=== PATIENT | female | born 1990 | race Caucasian/White ===

== ENCOUNTER 2018-04-30 07:46 | Emergency (ER) | payer OTHER ==
[2018-04-30] MEDS ORDERED: Ketorolac INJ* 30 MG/ML 1 ML VIAL IV ONE (07:57)
[2018-04-30] MEDS ORDERED: Ondansetron INJ* 2 MG/ML VIAL IV ONE (07:57)
[2018-04-30] MEDS ORDERED: NS 0.9% 1000 ML* 1,000 ML IV ONE (07:57)
--- NOTE | 2018-04-30 08:02 | ED ---
GI/ HPI - HPI Summary HPI Summary: This pt is a 28 y/o female presenting to [facility] c/o right sided flank pain since this morning. Pt reports her pain began suddenly this morning on her way driving to work. She states her pain has been worsening, initially was a 2/10 in severity and it is now 7/10 in severity. Denies dysuria, hematuria, chest pain, SOB, fever, chills. She reports she has never had this pain in the past. Denies hx of kidney stones. LMP: 2-3 weeks ago. PMHx: asthma and allergies. - History of Current Complaint Time Seen by Provider: 04/30/18 07:51 Stated Complaint: RIGHT SIDE FLANK PAIN Hx Obtained From: Patient Hx Last Menstrual Period: 2ND WEEK SEPTEMBER Onset/Duration: Started Hours Ago, Still Present Timing: Lasting Hours Current Severity: Severe - 7/10 pain Location of Pain: Flank - right Associated Signs and Symptoms: Positive: Nausea, Flank Pain - right. Negative: Vomiting, Fever, Dysuria, Chills, Cough, Chest Pain Aggravating Factor(s): Nothing Alleviating Factor(s): Nothing - Allergy/Home Medications Allergies/Adverse Reactions: Allergies Allergy/AdvReac Type Severity Reaction Status Date / Time diphenhydramine Allergy See Comment Verified 04/30/18 08:16 [From Benadryl] ANESTHESIA Allergy Severe Hives Uncoded 04/30/18 08:16 Home Medications: Home Medications Albuterol HFA INHALER* [Ventolin HFA Inhaler*] 2 puff INH Q4HR PRN 04/30/18 [ History Confirmed 04/30/18] Cetirizine* [ZyrTEC 10 MG TAB*] 1 tab PO DAILY 04/30/18 [History Confirmed 04/30] Escitalopram Oxalate [Lexapro 20 mg] 20 mg PO DAILY 04/30/18 [History Confirmed 04/30/18] buPROPion HCl [Wellbutrin Sr] 1 tab PO DAILY 04/30/18 [History Confirmed ] PMH/Surg Hx/FS Hx/Imm Hx Endocrine/Hematology History: Denies: Hx Diabetes Cardiovascular History: Denies: Hx Hypertension Respiratory History: Reports: Hx Asthma - Surgical History Surgery Procedure, Year, and Place: RIGHT EYE SURGERY. Wrist surgery - Family History Known Family History: Negative: Cardiac Disease, Hypertension, Diabetes - Social History Alcohol Use: None Substance Use Type: Reports: None Smoking Status (MU): Never Smoked Tobacco Review of Systems Negative: Fever, Chills Negative: Chest Pain Negative: Shortness Of Breath Positive: Nausea. Negative: Vomiting Positive: flank pain - right sided All Other Systems Reviewed And Are Negative: Yes Physical Exam - Summary Physical Exam Summary: VITAL SIGNS: Reviewed. GENERAL: Patient is a well-developed and nourished female. Patient is in some distress secondary to pain. HEAD AND FACE: Normocephalic and atraumatic. EYES: PERRLA, EOMI x 2, No injected conjunctiva. EARS: Hearing grossly intact. Ear canals and tympanic membranes are WNL. MOUTH: Oropharynx within normal limits. NECK: Supple, trachea is midline, no adenopathy, no JVD. CHEST: Symmetric, no tenderness at palpation LUNGS: Clear to auscultation bilaterally. No wheezing or crackles. CVS: RRR, S1 and S2 present, no murmurs or gallops appreciated. ABDOMEN: Soft. No signs of distention. Positive bowel sounds. No rebound no guarding, and no masses palpated. No abdominal bruit or pulsations. Right costovertebral angle tenderness. EXTREMITIES: FROM in all major joints, no edema, no cyanosis or clubbing. NEURO: Alert and oriented x 3. No acute neurological deficits. Speech is normal. SKIN: Dry and warm Triage Information Reviewed: Yes Vital Signs On Initial Exam: Initial Vitals Temp Pulse Resp BP Pulse Ox 96.2 F 66 22 121/94 98 04/30/18 07:50 04/30/18 07:50 04/30/18 07:50 04/30/18 07:50 04/30/18 07:50 Vital Signs Reviewed: Yes Diagnostics - Laboratory Result Diagrams: 04/30/18 08:14 04/30/18 08:14 Lab Statement: Any lab studies that have been ordered have been reviewed, and results considered in the medical decision making process. - CT Abdomen/Pelvis CT CT Interpretation Completed By: Radiologist Summary of CT Findings: IMPRESSION: 1. Bilateral punctate nonobstructing renal calyceal stones. 2. There is a vascular calcification versus distal ureteral stone measuring up to 0.2 CM. There is no hydronephrosis. Dr. Watt has reviewed this report. Re-Evaluation - Re-Evaluation First Eval Re-Evaluation Time: 10:31 Change: Improved Comment: She reports feeling better. I discussed the lab and CT results with the pt. She will be discharged home with follow up from her PCP. GIGU Course/Dx - Course Assessment/Plan: This pt is a 28 y/o female presenting to [facility] c/o right sided flank pain since this morning. Pt reports her pain began suddenly this morning on her way driving to work. She states her pain has been worsening, initially was a 2/10 in severity and it is now 7/10 in severity. Denies dysuria, hematuria , chest pain, SOB, fever, chills. She reports she has never had this pain in the past. Denies hx of kidney stones. LMP: 2-3 weeks ago. PMHx: asthma and allergies. Blood work without any significant abnormality except for creatinine 1.07, CRP of 9.94, urinalysis with positive leukocytes and white blood cells and red blood cells and squamous epithelial cells. Therefore, I believe that the patient has a contamination. Abdominal pelvic CT IMPRESSION: 1. BILATERAL PUNCTATE NONOBSTRUCTING RENAL CALYCEAL STONES. 2. THERE IS A VASCULAR CALCIFICATION VERSUS DISTAL URETERAL STONE MEASURING UP TO 0.2 CM. THERE IS NO HYDRONEPHROSIS. In the ED course the patient was given IV fluids, Toradol for the pain and the symptoms have resolved. At this point the patient is completely asymptomatic. Therefore since the patient doesnt have any dysuria, hematuria, fever, I do not believe that the patient has a UTI. However because of the pain I believe that the patient had a kidney stone. Since patient is asymptomatic and feeling better, the patient will be discharged home with follow-up from her PCP. Patient is hemodynamically stable , alert and oriented 3. I discussed all the findings and test results with the patient. Patient was instructed to return to the emergency room immediately if any of the symptoms return or worsens. Plan of care was discussed with the patient and understands and agrees. All questions were answered at patient satisfaction. There were no further complaints or concerns. Lung exam before discharge: CTA B/L. Good air exchange. No wheezing or crackles heard. CVS: S1 and S2 present. No murmurs appreciated. Patient is alert and oriented x 3. Patient is hemodynamically stable. Patient will be discharged home with follow up from PCP in the next 2-3 days. - Diagnoses Provider Diagnoses: Kidney stones Discharge - Sign-Out/Discharge Documenting (check all that apply): Patient Departure - Discharge home - Discharge Plan Condition: Stable Disposition: HOME Prescriptions: HYDROcodone/ACETAMIN 5-325 MG* [[place] 5-325 TAB*] 1 tab PO Q6H PRN #10 tab MDD 4 PRN Reason: Pain Patient Education Materials: Kidney Stones (ED) Referrals: Ashlyn Babcock COACH OPERATOR [Primary Care Provider] - Additional Instructions: FOLLOW UP WITH YOUR PRIMARY CARE PROVIDER WITHIN 2-3 DAYS. RETURN TO THE ED FOR ANY NEW OR WORSENING SYMPTOMS. - Billing Disposition and Condition Condition: STABLE Disposition: Home - Attestation Statements Document Initiated by Scribe: Yes Documenting Scribe: Faiza Leija Provider For Whom Pat is Documenting (Include Credential): Neil Watt MD Scribe Attestation: Faiza Youngblood scribed for Neil Watt MD on 04/30/18 at 1246. Scribe Documentation Reviewed: Yes Provider Attestation: The documentation as recorded by the Faiza patel accurately reflects the service I personally performed and the decisions made by , Neil Watt MD Status of Scribe Document: Viewed
[2018-04-30 08:30] LABS: ABS Basophils 0.1 10^3/ul (0-0.2); ABS Eosinophils 0.1 10^3/ul (0-0.6); ABS Monocytes 0.6 10^3/ul (0-0.8); ABS Neutrophils 4.8 10^3/ul (1.5-7.7); ABS Nucleated RBC 0 10^3/ul; Eosinophil % 1.5 %; Hematocrit 42 % (35-47); Hemoglobin 14.2 g/dl (12.0-16.0); Lymphocyte % 34.4 %; Mean Corpuscular HGB Conc 34 g/dl (31-36); Mean Corpuscular Hemoglobin 31 pg (27-31); Mean Corpuscular Volume 92 fL (80-97); Mean Platelet Volume 9.9 fL (7.4-10.4); Nucleated Red Blood Cells % 0; Platelet Count 194 10^3/ul (150-450); Red Blood Count 4.56 10^6/ul (4.00-5.40); Red Cell Distribution Width 13 % (10.5-15); White Blood Count 8.6 10^3/ul (3.5-10.8)
[2018-04-30 08:47] LABS: Urine Appearance Cloudy; Urine Blood Negative (Negative); Urine Color Yellow; Urine Ketones Negative (Negative); Urine Protein Negative (Negative); Urine Red Blood Cell 2+(6-10/hpf) (Absent); Urine Specific Gravity 1.019 (1.010-1.030); Urine Urobilinogen Negative (Negative); Urine White Blood Cell 3+(>20/hpf) (Absent)
[2018-04-30 08:47] LABS: EGFR Non-African American 61.1 (>60)
[2018-04-30 10:37] VITALS: BP 115/57
--- NOTE | 2018-05-04 18:19 | ED ---
Progress - Progress Note Progress Note: Patient's final urine culture reveals 25-50,000 Gardnerella vaginalis and 25-50, 000 normal dejah. She was diagnosed with a kidney stone and presented with flank pain. There is no indication that she had any vaginal symptoms however given this bacterial finding and her symptoms, attempted to contact patient to further investigate. Left message to call with patient and mom who is her next of kin. Will also mail letter. If patient is having symptoms of vaginitis , would provide her with treatment of either metronidazole or clindamycin. Jude martinez aware. Re-Evaluation - Re-Evaluation First Eval Re-Evaluation Time: 10:31 Change: Improved Comment: She reports feeling better. I discussed the lab and CT results with the pt. She will be discharged home with follow up from her PCP. Course/Dx - Diagnoses Provider Diagnoses: Kidney stones Discharge - Sign-Out/Discharge Documenting (check all that apply): Post-Discharge Follow Up - Discharge Plan Condition: Stable Disposition: HOME Prescriptions: HYDROcodone/ACETAMIN 5-325 MG* [[place] 5-325 TAB*] 1 tab PO Q6H PRN #10 tab MDD 4 PRN Reason: Pain Patient Education Materials: Kidney Stones (ED) Referrals: Ashlyn Babcock, WET END SUPERVISOR [Primary Care Provider] - Additional Instructions: FOLLOW UP WITH YOUR PRIMARY CARE PROVIDER WITHIN 2-3 DAYS. RETURN TO THE ED FOR ANY NEW OR WORSENING SYMPTOMS. - Billing Disposition and Condition Condition: STABLE Disposition: Home
== END 2018-04-30 10:40 | disposition home or self-care (01) ==
LOC: ED 07:46
DX: N20.0 Calculus of kidney (principal); R11.0 Nausea; R10.84 Generalized abdominal pain
CPT/HCPCS: 36415; 74176; 80053; 81003; 81015; 83605; 83690; 84702; 85025; 86140; 87086; 87088; 96361; 96374; 96375; 99283; J1885; J2405

== ENCOUNTER 2019-06-26 16:29 | Emergency (ER) | payer OTHER ==
[2019-06-26 17:57] VITALS: BP 133/75
[2019-06-26 18:08] LABS: Influenza B Molecular POSITIVE (Negative)
--- NOTE | 2019-06-26 18:24 | UC ---
FLU HPI - HPI Summary HPI Summary: 29-year-old woman comes in with a chief complaint of influenza-like symptoms for the last 36 hours. She's got headache fevers chills body aches and a sore throat. [id number] medicines haven't been helping with the symptoms. She does hurt she swallows. She has been having some wheezing and she's been using her albuterol inhaler which does help with the wheezing. - History of Current Complaint Chief Complaint: UCGeneralIllness Stated Complaint: FLU LIKE SYMPTOMS Time Seen by Provider: 06/26/19 18:08 Hx Last Menstrual Period: 06/12/19 Pain Intensity: 0 - Allergy/Home Medications Allergies/Adverse Reactions: Allergies Allergy/AdvReac Type Severity Reaction Status Date / Time diphenhydramine Allergy See Comment Verified 06/26/19 17:58 [From Benadryl] ANESTHESIA Allergy Severe Hives Uncoded 06/26/19 17:58 PMH/Surg Hx/FS Hx/Imm Hx Previously Healthy: Yes Respiratory History: Asthma - Surgical History Surgical History: Yes Surgery Procedure, Year, and Place: RIGHT EYE SURGERY. Wrist surgery - Family History Known Family History: Negative: Cardiac Disease, Hypertension, Diabetes - Social History Alcohol Use: Occasionally Substance Use Type: None Smoking Status (MU): Never Smoked Tobacco Review of Systems All Other Systems Reviewed And Are Negative: Yes Constitutional: Positive: Fever, Chills, Other - SEE HPI Skin: Positive: Negative Eyes: Positive: Negative ENT: Positive: Sore Throat, Nasal Discharge, Sinus Congestion Respiratory: Positive: Cough, Other - SEE HPI Cardiovascular: Positive: Negative Gastrointestinal: Positive: Negative Motor: Positive: Negative Neurovascular: Positive: Negative Musculoskeletal: Positive: Myalgia Neurological: Positive: Headache Psychological: Positive: Negative Is Patient Immunocompromised?: No Physical Exam Triage Information Reviewed: Yes Appearance: No Pain Distress, Well-Nourished, Ill-Appearing - MILD Vital Signs: Initial Vital Signs Temp 98.6 F 06/26/19 17:53 Pulse 79 06/26/19 17:53 Resp 14 06/26/19 17:53 BP 133/75 06/26/19 17:53 Pulse Ox 100 06/26/19 17:53 Vital Signs Reviewed: Yes Eye Exam: Normal Eyes: Positive: Conjunctiva Clear ENT: Positive: Pharyngeal erythema, Nasal congestion, Nasal drainage, TMs normal Neck: Positive: Supple Respiratory: Positive: Lungs clear, Normal breath sounds, No respiratory distress Cardiovascular: Positive: RRR Musculoskeletal: Positive: Strength Intact, ROM Intact Neurological: Positive: Alert, Muscle Tone Normal Psychological: Positive: Age Appropriate Behavior Skin Exam: Normal Flu Course/Dx - Differential Dx/Diagnosis Provider Diagnosis: Influenza Discharge ED - Sign-Out/Discharge Documenting (check all that apply): Patient Departure All imaging exams completed and their final reports reviewed: No Studies - Discharge Plan Condition: Stable Disposition: HOME Prescriptions: Albuterol HFA INHALER* [Ventolin HFA Inhaler*] 2 puff INH Q4H PRN #1 mdi PRN Reason: Wheezing Patient Education Materials: Influenza (ED) Forms: *School Release, *Work Release Referrals: Ashlyn Babcock TUNNEL KILN OPERATOR [Primary Care Provider] - Additional Instructions: FOLLOW UP WITH YOUR DOCTOR IF NOT COMPLETELY IMPROVED. GET RECHECKED SOONER IF YOUR CONDITION WORSENS OR ANY QUESTIONS OR CONCERNS. - Billing Disposition and Condition Condition: STABLE Disposition: Home
== END 2019-06-26 18:54 | disposition home or self-care (01) ==
LOC: UCCORT 16:29
DX: J11.1 Influenza due to unidentified influenza virus with other respiratory manifestations (principal); Z88.4 Allergy status to anesthetic agent; Z88.8 Allergy status to other drugs, medicaments and biological substances
CPT/HCPCS: 87651; 99212; G0463